=== PATIENT | female | born 1995 | race Asian ===

== ENCOUNTER 2017-01-16 17:26 | Emergency (ER) | payer BC, MEDICAID ==
[2017-01-16 20:41] LABS: UA SPECIFIC GRAVITY 1.025 (1.005-1.035); microscopic required? YES; urine erythrocyte 2+ (NEGATIVE)
[2017-01-16 20:45] LABS: BASOPHIL % 0.5 % (0-2); PLATELET COUNT 173 x10^3mcL (130-400); RED CELL DISTRIBUTION WIDTH 13.8 % (11.5-14.5)
[2017-01-16 22:30] VITALS: BP 100/64
== END 2017-01-16 22:30 | disposition left against medical advice (07) ==
LOC: ED 17:26 → DU 22:04 → ED 22:04
PROVIDERS: Emergency Medicine
DX: N71.9 Inflammatory disease of uterus, unspecified (principal)
CPT/HCPCS: 36415; J0696; J3490

== ENCOUNTER 2017-01-19 09:44 | Inpatient (IN) | payer BC, MEDICAID ==
[~2017-01-19] VITALS: Ht 180.3 cm; Wt 51.9 kg
[2017-01-19 10:29] LABS: BASOPHIL % 0.3 % (0-2); PLATELET COUNT 194 x10^3mcL (130-400); RED CELL DISTRIBUTION WIDTH 13.4 % (11.5-14.5)
[2017-01-19 12:53] LABS: T3 TOTAL 0.89 ng/mL
[2017-01-19 12:56] VITALS: Ht 180.3 cm; Wt 51.9 kg
[2017-01-19 12:59] LABS: MAGNESIUM 1.9 mg/dL (1.8-2.4); PHOSPHOROUS 3.6 mg/dL (2.5-4.9)
[2017-01-19 13:02] LABS: CHOLESTEROL/HDL RATIO 2.4
[2017-01-19 13:09] VITALS: BP 98/63
[2017-01-19 13:23] LABS: FREE T4 1.12 ng/dL (0.76-1.46); FREE THYROXINE INDEX 3.4 ug/dL (1.4-4.5); T4(THYROXINE) 9.4 ug/dL (4.7-13.3)
[2017-01-19 16:58] VITALS: BP 98/64
[2017-01-19 22:13] VITALS: BP 84/51
[2017-01-19 23:53] VITALS: BP 84/44
[2017-01-20 05:20] VITALS: BP 95/52
[2017-01-20 06:28] VITALS: BP 95/52
[2017-01-20 07:25] LABS: CARBON DIOXIDE 24.9 mmol/L (21-32); CHLORIDE SERUM 110 mmol/L (98-107); CREATININE SERUM 0.8 mg/dL (0.6-1.0); GFR1 > 60 mL/min; GLUCOSE SERUM 85 mg/dL (74-106); PHOSPHOROUS 4.2 mg/dL (2.5-4.9); POTASSIUM SERUM 3.8 mmol/L (3.5-5.1); SODIUM SERUM 141 mmol/L (136-145)
[2017-01-20 08:03] LABS: BASOPHIL % 0.5 % (0-2); PLATELET COUNT 186 x10^3mcL (130-400); RED CELL DISTRIBUTION WIDTH 13.4 % (11.5-14.5)
[2017-01-20 08:45] LABS: UA SPECIFIC GRAVITY <=1.005 (1.005-1.035); microscopic required? YES; urine erythrocyte 3+ (NEGATIVE)
[2017-01-20 08:54] LABS: AMPHETAMINE QUAL UR NONE DETECTED (NEG <=1000)
[2017-01-20 09:35] VITALS: BP 91/50
[2017-01-20 10:26] VITALS: BP 91/50
[2017-01-20 14:00] VITALS: BP 93/53
[2017-01-20] MEDS ORDERED: FEROSUL325 MG PO (15:42)
[2017-01-20] MEDS ORDERED: VITC100 PO (15:42)
[2017-01-20 15:50] VITALS: BP 97/55
== END 2017-01-20 16:05 | disposition left against medical advice (07) | DRG 770 ==
LOC: ED 09:44 → DU 11:24 → MU 11:24 → DU 12:20 → MU 01-20 06:53
PROVIDERS: Emergency Medicine; Obstetrics & Gynecology; ADMIT Family Medicine
PROC: 10D17ZZ Extraction of Products of Conception, Retained, Via Natural or Artificial Opening (ICD-10-PCS; principal; 2017-01-19 15:30)
DX: O03.1 Delayed or excessive hemorrhage following incomplete spontaneous abortion (principal); D62 Acute posthemorrhagic anemia; R65.10 Systemic inflammatory response syndrome (SIRS) of non-infectious origin without acute organ dysfunction; Z68.1 Body mass index [BMI] 19.9 or less, adult; E83.51 Hypocalcemia; E87.8 Other disorders of electrolyte and fluid balance, not elsewhere classified; D72.818 Other decreased white blood cell count; Z53.21 Procedure and treatment not carried out due to patient leaving prior to being seen by health care provider; Z53.29 Procedure and treatment not carried out because of patient's decision for other reasons; D72.819 Decreased white blood cell count, unspecified; R31.9 Hematuria, unspecified
CPT/HCPCS: 83880; 84439; C1758; J0696; J2175; J2250; J3010; J7030; J7040; Q0092

== ENCOUNTER 2017-09-21 11:14 | Emergency (ER) | payer BC, MEDICAID ==
[~2017-09-21] VITALS: Ht 180.3 cm; Wt 52.2 kg
[~2017-09-21 11:14] MED LIST: FEROSUL325 MG PO; VITC100 PO
[2017-09-21 11:22] VITALS: BP 112/69; Ht 180.3 cm; Wt 52.2 kg
[2017-09-21 14:14] LABS: microscopic required? YES; urine erythrocyte NEGATIVE (NEGATIVE)
[2017-09-21 15:07] LABS: BASOPHIL % 0.3 % (0-2); PLATELET COUNT 164 x10^3mcL (130-400); RED CELL DISTRIBUTION WIDTH 13.2 % (11.5-14.5)
[2017-09-21 15:22] LABS: CALCIUM 8.8 mg/dL (8.5-10.1); CARBON DIOXIDE 26.4 mmol/L (21-32); CHLORIDE SERUM 106 mmol/L (98-107); CREATININE SERUM 0.6 mg/dL (0.6-1.0); GFR1 > 60 mL/min; GLUCOSE SERUM 88 mg/dL (74-106); POTASSIUM SERUM 3.8 mmol/L (3.5-5.1); SODIUM SERUM 140 mmol/L (136-145)
[2017-09-21 15:26] LABS: ALKALINE PHOSPHATASE 64 U/L (46-116); ALT/SGPT 21 U/L (14-59); AST/SGOT 20 U/L (15-37); TOTAL PROTEIN, SERUM 7.7 g/dL (6.4-8.2)
== END 2017-09-21 16:32 | disposition home or self-care (01) ==
LOC: ED 11:14
PROVIDERS: Emergency Medicine
DX: O20.0 Threatened abortion (principal); Z3A.01 Less than 8 weeks gestation of pregnancy
CPT/HCPCS: 36415